=== PATIENT | male | born 1955 | race Caucasian/White ===

== ENCOUNTER 2018-03-15 11:23 | Outpatient (CLI) | payer OTHER ==
[2015-10-20 20:07] VITALS: BMI 24.7
--- NOTE | 2018-03-15 16:54 | MRI ---
EXAM: MRI right elbow without and with contrast. HISTORY: Osteomyelitis right elbow. Surgery 1 year ago x2. Removed infection first. Torn tendon i n elbow second.. TECHNIQUE: Using a local extremity coil on a high field strength magnet multiplanar multisequence ma gnet resonance imaging was attempted of the right elbow pre and post intravenous gadolinium contrast administration. 19 ml of gadolinium contrast administered for the examination.. FINDINGS: I do not have prior radiographs of the right elbow available for comparison at the time of this dictation. The alignment of the right elbow shows no dislocation or joint subluxations. Physiologic amount of f luid right elbow joint. No large osteochondral loose bodies. There is extensive artifact related to postsurgical intervention along the distal course of the triceps tendon. Correlate with operative h istory. There is tendinosis with likely component of scar/granulation tissue and disruption of the d istal triceps tendinous insertion. Loss of subcutaneous fat with soft tissue swelling. This may ref lect cellulitis/edema/phlegmon. Intermixed is a thickened peripherally enhancing fluid signal intens ity collection measuring 10 mm concerning for abscess. Cutaneous defect/wound/ulceration overlying. Correlate clinically.. Contact with the underlying posterior aspect of the olecranon. Some cortica l indistinctness as well as somewhat erosive/cystic change posterior olecranon. Although some of thi s may be postoperative concern for osteomyelitis. Within the anterior compartment there is distal ins ertional biceps brachii tendinosis. Intact distal brachialis tendon fibers. Within the medial compartment intact ulnar collateral ligament fibers. Origin of the flexor pronator wad intact. The ulnar nerve is located in expected position within the cubital tunnel and within no rmal limit in signal intensity and morphology. Within the lateral compartment question torn radial collateral ligament. Intact lateral ulnar collat eral ligament. Intact annular ligament.. Lateral epicondylitis with partial thickness tearing. IMPRESSION: Extensive artifact related to postsurgical intervention along the distal course of the t riceps tendon. Correlate with operative history. Tendinosis with component of scar/granulation tiss ue and disruption of the distal triceps tendinous insertion. Superimposed question cellulitis/edema/phlegmon. Intermixed peripherally enhancing 10 mm fluid colle ction concerning for abscess. Overlying cutaneous defect/wound/ulceration. Correlate clinically. U nderlying cortical indistinctness along the posterior olecranon as well as erosive/cystic change. Al though some of this may be postoperative, concern for osteomyelitis. Recommendation is obtainment an d correlation with plain film radiographs of the right elbow as none are available for comparison at the time of this dictation. Distal insertional biceps brachii tendinosis. Torn radial collateral ligament. Lateral epicondylitis with partial thickness tearing.
== END 2018-03-15 11:24 | disposition home or self-care (01) ==
LOC: RAD 11:23
PROVIDERS: ATTEND Orthopaedic Surgery Sports Medicine
DX: M86.9 Osteomyelitis, unspecified (principal)
CPT/HCPCS: 36415; 82565; 85025; 85651; 86140

== ENCOUNTER 2018-04-26 13:12 | Outpatient (CLI) ==
[2015-10-20 20:07] VITALS: BMI 24.7
== END 2018-04-26 13:13 | disposition home or self-care (01) ==
LOC: NONPT 13:12
PROVIDERS: ATTEND Orthopaedic Surgery Sports Medicine
DX: M70.21 Olecranon bursitis, right elbow (principal); M86.9 Osteomyelitis, unspecified
CPT/HCPCS: 82565; 85025

== ENCOUNTER 2018-04-29 10:16 | Outpatient (CLI) ==
[2015-10-20 20:07] VITALS: BMI 24.7
== END 2018-04-29 10:17 | disposition home or self-care (01) ==
LOC: LAB 10:16
PROVIDERS: ATTEND Orthopaedic Surgery Sports Medicine
DX: M86.9 Osteomyelitis, unspecified (principal)
CPT/HCPCS: 36415; 85025

== ENCOUNTER 2018-05-03 16:10 | Outpatient (CLI) | payer OTHER ==
[2015-10-20 20:07] VITALS: BMI 24.7
== END 2018-05-03 16:11 | disposition home or self-care (01) ==
LOC: NONPT 16:10
PROVIDERS: ATTEND Orthopaedic Surgery Sports Medicine
DX: M86.9 Osteomyelitis, unspecified (principal)
CPT/HCPCS: 82550; 82565; 85025

== ENCOUNTER 2018-05-10 15:37 | Outpatient (CLI) ==
[2015-10-20 20:07] VITALS: BMI 24.7
== END 2018-05-10 15:38 | disposition home or self-care (01) ==
LOC: NONPT 15:37
PROVIDERS: ATTEND Orthopaedic Surgery Sports Medicine
DX: M86.9 Osteomyelitis, unspecified (principal)
CPT/HCPCS: 82565

== ENCOUNTER 2018-05-12 09:42 | Outpatient (CLI) ==
[2015-10-20 20:07] VITALS: BMI 24.7
== END 2018-05-12 09:43 | disposition home or self-care (01) ==
LOC: NONPT 09:42
PROVIDERS: ATTEND Orthopaedic Surgery Sports Medicine
DX: M86.9 Osteomyelitis, unspecified (principal)
CPT/HCPCS: 85025

== ENCOUNTER 2018-05-24 15:22 | Outpatient (CLI) | payer OTHER ==
[2015-10-20 20:07] VITALS: BMI 24.7
== END 2018-05-24 15:23 | disposition home or self-care (01) ==
LOC: NONPT 15:22
PROVIDERS: ATTEND Orthopaedic Surgery Sports Medicine
DX: M86.9 Osteomyelitis, unspecified (principal)
CPT/HCPCS: 82565; 85025

== ENCOUNTER 2018-05-27 09:30 | Outpatient (CLI) | payer OTHER ==
[2015-10-20 20:07] VITALS: BMI 24.7
== END 2018-05-27 09:31 | disposition home or self-care (01) ==
LOC: LAB 09:30
PROVIDERS: ATTEND Orthopaedic Surgery Sports Medicine
DX: M86.9 Osteomyelitis, unspecified (principal)
CPT/HCPCS: 36415; 85651

== ENCOUNTER 2021-11-17 17:43 | Observation (INO) ==
[2021-11-17 17:53] VITALS: BMI 31.5
[2021-11-17] MEDS ORDERED: SODIUM CHLORIDE 1,000 ML IV STA ×2 (17:54)
[2021-11-17] MEDS ORDERED: VENTOLIN HFA (PER PUFF-WITH SPACER) IH ONE (17:56)
[2021-11-17] MEDS ORDERED: ATROVENT HFA INHALER (PER PUFF-WITH SPACER) IH ONE (17:56)
[2021-11-17] MEDS ORDERED: SOLU-MEDROL 125 MG IVP ONE (17:56)
[2021-11-17 18:17] LABS: ABG PH 7.39 (7.35-7.45)
[2021-11-17 18:18] LABS: ABG O2 HGB 95.3 % (95-100); BEecf -3.2 (-2.0-3.0); COHb 1.2 (0.5-1.5); HCO3 21.8 (21-28); MetHb 0.8 (0-1.5); TCO2 22.9 (19-24); sO2 97.1 % (94-98); tHb 15.2 g/dl (11.7-17.4)
--- NOTE | 2021-11-17 18:24 | CT ---
EXAM: CT BRAIN HISTORY: Altered mental status TECHNIQUE: CT brain without intravenous contrast. 5-mm axial sections with Reformations. COMPARISON: 04/15/2012 FINDINGS: There is mild age-related cerebral volume loss. There is mild to moderate periventricular and deep w zeny matter low attenuation which although nonspecific is suggestive of chronic microvascular ischemi c change. These findings are stable. The brain otherwise was unremarkable without evidence of hemorr luis enrique or large vessel distribution recent ischemic infarction. There is no suggestion of acute hydroc ephalus or subdural fluid collection. No mass or mass effect. Cranium has no acute finding. Mastoi d processes are aerated. The visualized paranasal sinuses reveal mild mucosal thickening. IMPRESSION: 1. Involutional changes. No acute intracranial process identified. - - - - - All CT scans are performed using dose optimization techniques as appropriate to the performed exam an d include at least one of the following: Automated exposure control, adjustment of the mA and/or kV according t o size, and the use of iterative reconstruction technique.
[2021-11-17 18:36] LABS: BASOPHILS % (AUTO) 0.3 % (0.0-3.0); EOSINOPHILS # (AUTO) 0.1 K/ul (0.0-0.7); HEMATOCRIT 43.6 % (42.0-52.0); HEMOGLOBIN 15.3 g/dl (14.0-18.0); IMMATURE GRANULOCYTE % (AUTO) 0.4 % (0.0-5.0); LYMPHOCYTES # (AUTO) 2.1 K/uL (0.60-3.4); LYMPHOCYTES % (AUTO) 30.4 (10.0-50.0); MEAN CORPUSCULAR HEMOGLOBIN 32.1 pg (27.0-31.0); MEAN CORPUSCULAR HGB CONC 35.1 (31.8-35.4); MEAN CORPUSCULAR VOLUME 91.6 fl (80.0-94.0); MONOCYTES # (AUTO) 0.5 K/uL (0.4-2.0); MONOCYTES % (AUTO) 7.2 (0-10); NEUTROPHILS # (AUTO) 4.2 K/ul (2.0-6.9); NEUTROPHILS % (AUTO) 60.7 % (42.2-75.2); PLATELET COUNT 238 10^3/uL (140-440); RDW COEFFICIENT OF VARIATION 12.6 % (11.6-14.8); RED BLOOD COUNT 4.76 10^6/ul (4.70-6.10); WHITE BLOOD COUNT 6.85 K/ul (4.2-10.2)
[2021-11-17] MEDS ORDERED: SODIUM CHLORIDE IV STA (18:37)
[2021-11-17] MEDS ORDERED: KEPPRA IV STA (18:37)
[2021-11-17] MEDS ORDERED: ATIVAN PO ONE (18:41)
[2021-11-17 18:48] LABS: ALANINE AMINOTRANSFERASE 56.8 U/L (0-50); ALBUMIN 4.51 g/dL (3.5-5.0); ALKALINE PHOSPHATASE 113.1 U/L (56-119); ASPARTATE AMINO TRANSFERASE 51.7 U/L (17-59); BILIRUBIN,TOTAL 0.33 mg/dL (0.2-1.3); BLOOD UREA NITROGEN 17.8 mg/dL (9-20); CALCIUM 9.48 mg/dL (8.4-10.2); CARBON DIOXIDE 25.9 mmol/L (22-30.0); CHLORIDE 105.9 mmol/L (98-107); CREATININE 1.12 mg/dL (0.60-1.10); GLUCOSE 106.3 mg/dL (74-106); POTASSIUM 3.65 mmol/L (3.5-5.1); TOTAL PROTEIN 8.27 g/dL (6.3-8.2)
--- NOTE | 2021-11-17 18:51 | CT ---
EXAM: CT THORAX HISTORY: Shortness of breath. TECHNIQUE: CT thorax without intravenous contrast. Multiplanar images presented. COMPARISON: None FINDINGS: Heart size is upper limit normal to mildly enlarged. There is no pericardial effusion. The ascendin g aortic caliber is upper limit normal at 3.5 cm. There is mild aortic atherosclerosis. A few coron ilana artery calcifications are noted. Small nonspecific mediastinal lymph nodes are present. Lungs a re free of acute infiltrate. No consolidated pneumonia, vascular congestion or pleural fluid. No pn eumothorax or suspicious pulmonary opacity. The bones reveal moderate degenerative changes of the joey mbar spine. IMPRESSION: 1. Heart size is upper limit normal to mildly enlarged. 2. The ascending aortic caliber is upper limit normal at 3.5 cm. There is mild aortic atheroscleros is. A few coronary artery calcifications are noted. 3. Lungs are free of acute infiltrate. No consolidated pneumonia, vascular congestion or pleural fl uid. - - - - - All CT scans are performed using dose optimization techniques as appropriate to the performed exam an d include at least one of the following: Automated exposure control, adjustment of the mA and/or kV according t o size, and the use of iterative reconstruction technique.
[2021-11-17 18:54] LABS: BILIRUBIN,URINE Negative (NEGATIVE); CLARITY,URINE Clear (CLEAR); COLOR,URINE Yellow (YELLOW); GLUCOSE, URINE (UA) Negative (NEGATIVE); KETONES,URINE Negative (NEGATIVE); LEUKOCYTE ESTERASE ,URINE Negative (NEGATIVE); NITRITE,URINE Negative (NEGATIVE); PH,URINE 6.5 (5-9); PROTEIN,URINE Negative (NEGATIVE); URINE, BLOOD Negative (NEGATIVE); UROBILINOGEN,URINE 0.2 (0.2)
[2021-11-17 19:00] LABS: TROPONIN I < 0.012 ng/ml (0.0000-0.120)
[2021-11-17 19:01] LABS: AMPHETAMINE SCREEN,URINE POSITIVE (NEGATIVE); BARBITURATE SCREEN,URINE NEGATIVE (NEGATIVE); OPIATE SCREEN,URINE NEGATIVE (NEGATIVE); PHENCYCLIDINE SCREEN,URINE NEGATIVE (NEGATIVE)
[2021-11-17 19:02] LABS: BENZODIAZEPINES SCREEN,URINE NEGATIVE (NEGATIVE); CANNABINOID SCREEN,URINE NEGATIVE (NEGATIVE); COCAIN SCREEN,URINE NEGATIVE (NEGATIVE); METHADONE URINE SCREEN NEGATIVE (NEGATIVE); METHAMPHETAMINES SCREEN,URINE POSITIVE (NEGATIVE); OXYCODONE URINE SCREEN POSITIVE (NEGATIVE); PROPOXYPHENE URINE SCREEN NEGATIVE (NEGATIVE); TRICYCLIC ANTIDEPRESSANTS URIN NEGATIVE (NEGATIVE)
[2021-11-17] MEDS ORDERED: CATAPRES PO ONE (19:08)
[2021-11-17 19:15] LABS: MOLECULAR FLU A NEGATIVE BY NAAT (NEGATIVE); MOLECULAR FLU B NEGATIVE BY NAAT (NEGATIVE)
--- NOTE | 2021-11-17 19:16 | ED.PDOC ---
General <WEI WHITT MD - Last Filed: 11/18/21 22:18> ED Provider: Dr. WEI WHITT MD Chief Complaint: Chest Pain Stated Complaint: absence episodes x this pm. pt had chest pain and may have fallen with no head injury Time Seen by Provider: 11/17/21 17:45 Mode of Arrival: Walk-In Information Source: Other Exam Limitations: No limitations Primary Care Provider: LORNE TSANG Nursing and Triage Documentation Reviewed and Agree: Yes Does patient meet sepsis criteria?: No If yes, has appropriate treatment been initiated?: No System Inflammatory Response Syndrome: Not Applicable Sepsis Protocol: For patient's 13 years and over: Temp is 96.8 and below OR 101 and greater Pulse >90 BPM Resp >20/minute Acutely Altered Mental Status Are patient's symptoms suggestive of a new infection, such as: -Pneumonia -Skin, Soft Tissue -Endocarditis -UTI -Bone, Joint Infection -Implantable Device -Acute Abdominal Infection -Wound Infection -Meningitis -Blood Stream Catheter Infection -Unknown Review of Systems <WEI WHITT MD - Last Filed: 11/18/21 22:18> Review Of Systems Constitutional: Reports No symptoms Eyes: Reports No symptoms Ears, Nose, Mouth, Throat: Reports No symptoms Respiratory: Reports No symptoms Cardiac: Reports No symptoms GI: Reports No symptoms : Reports No symptoms Musculoskeletal: Reports No symptoms Skin: Reports No symptoms Neurological: Reports Other (pt was not responsive, but was breathing normally and pulse ox was normal) Endocrine: Reports No symptoms Hematologic/Lymphatic: Reports No symptoms All Other Systems: Reviewed and Negative PFSH <WEI WHITT MD - Last Filed: 11/18/21 22:18> Medical History (Updated 11/18/21 @ 06:38 by OREN FERNANDEZ RN) Hypertension Seizures Physical Exam <WEI WHITT MD - Last Filed: 11/18/21 22:18> Physical Exam Appearance: Reports Well-appearing and Other (pt had episodic "absences" with normal responses interspersed) Ill-appearing: None Pain Distress: None Eyes: Reports DRU, EOMI and Conjunctiva clear ENT: Reports Ears normal, Nose normal and Oropharynx normal Neck: Supple Respiratory: Reports Airway patent, Breath sounds clear, Breath sounds equal and Respirations nonlabored Cardiovascular: Reports RRR, Pulses normal, No rub and No murmur GI/: Reports Soft, Nontender, No masses, Bowel sounds normal and No Organomegaly Musculoskeletal: Reports Normal strength, ROM intact, No edema and No calf t enderness Skin: Reports Warm, Dry and Normal color Neurological: Reports Sensation intact, Motor intact, Reflexes intact, Cranial nerves intact, Alert and Oriented Psychiatric: Reports Affect appropriate and Mood appropriate Interpretation <WEI WHITT MD - Last Filed: 11/18/21 22:18> Radiology Interpretation Xray Comments: see the reports <ROSAMARIA DENG MD - Last Filed: 11/17/21 22:47> Radiology Interpretation Radiology Interpretation By: Radiologist Radiology Results: No acute changes (1. Heart size is upper limit normal to mildly enlarged. 2. The ascending aortic caliber is upper limit normal at 3.5 cm. There is mild aortic atherosclerosis. A few coronary artery calcifications are noted. 3. Lungs are free of acute infiltrate. No consolidated pneumonia, vascular congestion o) Exam Interpreted: CT Scan Radiology Interpretation By: Radiologist Radiology Results: Negative (1. Involutional changes. No acute intracranial process identified.) Exam Interpreted: CT Scan C Programmer Time of C Programmer Interpretation: 21:18 Rate: Normal Rhythm: Sinus (@78) Ectopy: None EKG Interpretation Time of EKG #1: 17:44 Rate: Normal Rhythm: Sinus Ectopy: None [place]: NL ST Segment: Normal Interpretation: no St Elevation Time of EKG #2: 21:10 Rate: Normal Rhythm: Sinus Ectopy: None [place]: NL ST Segment: Normal EKG Interpretation: non specificc T wave abnormality Re-Evaluation <WEI WHITT MD - Last Filed: 11/18/21 22:18> Re-Evaluation Time of Re-Evaluation: 18:40 Status: Improved Vital Signs Stable: Yes Pain Level: 0 Appearance: NAD Lungs: Clear Skin: Warm and Dry Neuro: Alert and Oriented X3 CV: RRR Critical Care Note <WEI WHITT MD - Last Filed: 11/18/21 22:18> Critical Care Note Total Critical Care Time (mins): 0 <ROSAMARIA DENG MD - Last Filed: 11/17/21 22:47> Critical Care Note Total Critical Care Time (mins): 45 Comments: Agreed to get Keppra IV Given Labetalol due to persistent elevation blood pressure. Agreeable to be admitted. Course <WEI WHITT MD - Last Filed: 11/18/21 22:18> Course Hematology/Chemistry: 11/18/21 05:35 11/18/21 05:35 Orders, Labs, Meds: Lab Review 11/17/21 11/17/21 11/17/21 18:02 18:07 18:17 WBC RBC Hgb Hct MCV MCH MCHC RDW Coeff of Simran Plt Count Immature Gran % (Auto) Neut % (Auto) Lymph % (Auto) [place] % (Auto) Eos % (Auto) Baso % (Auto) Neut # (Auto) Lymph # (Auto) [place] # (Auto) Eos # (Auto) Baso # (Auto) Immature Gran # (Auto) Puncture Site L brach Base Excess -3.2 L O2 Saturation 97.1 ABG pH 7.39 ABG pCO2 36.0 ABG pO2 92.0 ABG HCO3 21.8 ABG Total CO2 22.9 Mook Test + Hemoglobin 0.8 Oxyhemoglobin 95.3 Carboxyhemoglobin 1.2 Total Hemoglobin 15.2 O2 Delivery Device Ambu bag FiO2 % 100.0 Sodium Potassium Chloride Carbon Dioxide Anion Gap BUN Creatinine Estimated GFR (MDRD) BUN/Creatinine Ratio Glucose Lactic Acid Calcium Total Bilirubin AST ALT Alkaline Phosphatase Troponin I Total Protein Albumin Globulin Albumin/Globulin Ratio Urine Color Urine Clarity Urine pH Ur Specific [place] Urine Protein Urine Glucose (UA) Urine Ketones Urine Blood Urine Nitrite Urine Bilirubin Urine Urobilinogen Ur Leukocyte Esterase Urine Opiates Screen Ur Oxycodone Screen Urine Methadone Screen Ur Propoxyphene Screen Ur Barbiturates Screen U Tricyclic Antidepress Ur Phencyclidine Scrn Ur Amphetamine Screen U Methamphetamines Scrn U Benzodiazepines Scrn Urine Cocaine Screen U Cannabinoids Screen Plasma/Serum Alcohol Influ A Molecular Assay Negative by naat Influ B Molecular Assay Negative by naat SARS CoV-2 RNA Rapid [place] Positive H 11/17/21 11/17/21 11/17/21 18:20 18:20 18:30 WBC 6.85 RBC 4.76 Hgb 15.3 Hct 43.6 MCV 91.6 MCH 32.1 H MCHC 35.1 RDW Coeff of Simran 12.6 Plt Count 238 Immature Gran % (Auto) 0.4 Neut % (Auto) 60.7 Lymph % (Auto) 30.4 [place] % (Auto) 7.2 Eos % (Auto) 1.0 Baso % (Auto) 0.3 Neut # (Auto) 4.2 Lymph # (Auto) 2.1 [place] # (Auto) 0.5 Eos # (Auto) 0.1 Baso # (Auto) 0.0 Immature Gran # (Auto) 0.0 Puncture Site Base Excess O2 Saturation ABG pH ABG pCO2 ABG pO2 ABG HCO3 ABG Total CO2 Mook Test Hemoglobin Oxyhemoglobin Carboxyhemoglobin Total Hemoglobin O2 Delivery Device FiO2 % Sodium Potassium Chloride Carbon Dioxide Anion Gap BUN Creatinine Estimated GFR (MDRD) BUN/Creatinine Ratio Glucose Lactic Acid Calcium Total Bilirubin AST ALT Alkaline Phosphatase Troponin I Total Protein Albumin Globulin Albumin/Globulin Ratio Urine Color Yellow Urine Clarity Clear Urine pH 6.5 Ur Specific [place] 1.010 Urine Protein Negative Urine Glucose (UA) Negative Urine Ketones Negative Urine Blood Negative Urine Nitrite Negative Urine Bilirubin Negative Urine Urobilinogen 0.2 Ur Leukocyte Esterase Negative Urine Opiates Screen Negative Ur Oxycodone Screen Positive H Urine Methadone Screen Negative Ur Propoxyphene Screen Negative Ur Barbiturates Screen Negative U Tricyclic Antidepress Negative Ur Phencyclidine Scrn Negative Ur Amphetamine Screen Positive H U Methamphetamines Scrn Positive H U Benzodiazepines Scrn Negative Urine Cocaine Screen Negative U Cannabinoids Screen Negative Plasma/Serum Alcohol Influ A Molecular Assay Influ B Molecular Assay SARS CoV-2 RNA Rapid [place] 11/17/21 11/17/21 11/17/21 18:30 18:30 18:30 WBC RBC Hgb Hct MCV MCH MCHC RDW Coeff of Simran Plt Count Immature Gran % (Auto) Neut % (Auto) Lymph % (Auto) [place] % (Auto) Eos % (Auto) Baso % (Auto) Neut # (Auto) Lymph # (Auto) [place] # (Auto) Eos # (Auto) Baso # (Auto) Immature Gran # (Auto) Puncture Site Base Excess O2 Saturation ABG pH ABG pCO2 ABG pO2 ABG HCO3 ABG Total CO2 Mook Test Hemoglobin Oxyhemoglobin Carboxyhemoglobin Total Hemoglobin O2 Delivery Device FiO2 % Sodium 142.0 Potassium 3.65 Chloride 105.9 Carbon Dioxide 25.9 Anion Gap 13.85 BUN 17.8 Creatinine 1.12 H Estimated GFR (MDRD) 66.00 BUN/Creatinine Ratio 15.89 Glucose 106.3 H Lactic Acid 2.06 Calcium 9.48 Total Bilirubin 0.33 AST 51.7 ALT 56.8 H Alkaline Phosphatase 113.1 Troponin I < 0.012 Total Protein 8.27 H Albumin 4.51 Globulin 3.76 Albumin/Globulin Ratio 1.19 Urine Color Urine Clarity Urine pH Ur Specific [place] Urine Protein Urine Glucose (UA) Urine Ketones Urine Blood Urine Nitrite Urine Bilirubin Urine Urobilinogen Ur Leukocyte Esterase Urine Opiates Screen Ur Oxycodone Screen Urine Methadone Screen Ur Propoxyphene Screen Ur Barbiturates Screen U Tricyclic Antidepress Ur Phencyclidine Scrn Ur Amphetamine Screen U Methamphetamines Scrn U Benzodiazepines Scrn Urine Cocaine Screen U Cannabinoids Screen Plasma/Serum Alcohol 72.6 H Influ A Molecular Assay Influ B Molecular Assay SARS CoV-2 RNA Rapid [place] 11/17/21 21:21 WBC RBC Hgb Hct MCV MCH MCHC RDW Coeff of Simran Plt Count Immature Gran % (Auto) Neut % (Auto) Lymph % (Auto) [place] % (Auto) Eos % (Auto) Baso % (Auto) Neut # (Auto) Lymph # (Auto) [place] # (Auto) Eos # (Auto) Baso # (Auto) Immature Gran # (Auto) Puncture Site Base Excess O2 Saturation ABG pH ABG pCO2 ABG pO2 ABG HCO3 ABG Total CO2 Mook Test Hemoglobin Oxyhemoglobin Carboxyhemoglobin Total Hemoglobin O2 Delivery Device FiO2 % Sodium Potassium Chloride Carbon Dioxide Anion Gap BUN Creatinine Estimated GFR (MDRD) BUN/Creatinine Ratio Glucose Lactic Acid Calcium Total Bilirubin AST ALT Alkaline Phosphatase Troponin I < 0.012 Total Protein Albumin Globulin Albumin/Globulin Ratio Urine Color Urine Clarity Urine pH Ur Specific [place] Urine Protein Urine Glucose (UA) Urine Ketones Urine Blood Urine Nitrite Urine Bilirubin Urine Urobilinogen Ur Leukocyte Esterase Urine Opiates Screen Ur Oxycodone Screen Urine Methadone Screen Ur Propoxyphene Screen Ur Barbiturates Screen U Tricyclic Antidepress Ur Phencyclidine Scrn Ur Amphetamine Screen U Methamphetamines Scrn U Benzodiazepines Scrn Urine Cocaine Screen U Cannabinoids Screen Plasma/Serum Alcohol Influ A Molecular Assay Influ B Molecular Assay SARS CoV-2 RNA Rapid [place] Orders Category Date Time Status ADMIT PATIENT INPATIENT .TO SCU (MONITORED BED) ADMISSION 11/17/21 22:34 Active ABG DRAW REQUEST Stat CARDIO 11/17/21 17:54 Completed EKG-(ED ONLY) Stat CARDIO 11/17/21 17:53 Completed EKG-(ED ONLY) Stat CARDIO 11/17/21 21:04 Completed EKG-(IP & OP ONLY) Routine CARDIO 11/18/21 07:00 Completed METERED DOSE INHALATION Routine CARDIO 11/17/21 17:57 Completed METERED DOSE INHALATION Routine CARDIO 11/17/21 22:38 Active ACTIVITY .Up With Assistance CARE 11/17/21 22:34 Active INTAKE & OUTPUT Q8HR CARE 11/17/21 22:35 Active TELEMETRY MONITORING TELE CARE 11/17/21 22:35 Active VITAL SIGNS Q4HR CARE 11/17/21 22:37 Active 2 GRAM SODIUM DIET DIETARY 11/17/21 Breakfast Ordered Saline Lock [ED IV/MEDIPORT/POWERPORT] .ONCE EMERGENCY 11/17/21 17:54 Active ABG COOX Stat LAB 11/17/21 18:17 Completed BASIC METABOLIC PANEL DAILY@0600 LAB 11/18/21 05:35 Completed BASIC METABOLIC PANEL DAILY@0600 LAB 11/19/21 06:00 Ordered CBC W/ AUTO DIFF DAILY@0600 LAB 11/18/21 05:35 Completed CBC W/ AUTO DIFF DAILY@0600 LAB 11/19/21 06:00 Ordered CBC W/ AUTO DIFF Stat LAB 11/17/21 18:30 Completed COMPREHENSIVE METABOLIC PANEL Stat LAB 11/17/21 18:30 Completed CREATINE KINASE Q8H LAB 11/18/21 00:35 Completed CREATINE KINASE Q8H LAB 11/18/21 05:35 Completed DRUG SCREEN (RAPID FOR ED) [DRUG SCREEN, URINE, RAPID] LAB 11/17/21 18:20 Completed Stat ETOH LEVEL [BLOOD ALCOHOL] Stat LAB 11/17/21 18:30 Completed FLU A & B MOLECULAR [FLU A/B MOLECULAR] Stat LAB 11/17/21 18:07 Completed LACTIC ACID Stat LAB 11/17/21 18:30 Completed SARS COV-2 RNA RAPID [place]Y Stat LAB 11/17/21 18:02 Completed TROPONIN I Q8H LAB 11/18/21 00:35 Completed TROPONIN I Q8H LAB 11/18/21 05:35 Completed TROPONIN I Stat LAB 11/17/21 18:30 Completed TROPONIN I Stat LAB 11/17/21 21:21 Completed URINALYSIS C & S IF INDICATED Stat LAB 11/17/21 18:20 Completed 0.9 % Sodium Chloride [Saline Flush] MEDS 11/17/21 17:54 Active 1 syr IVF PRN PRN Acetaminophen [Tylenol] MEDS 11/17/21 22:40 Active 650 mg PO Q4H PRN Albuterol Inhaler(with Spacer) [Ventolin Hfa (Per Puff- MEDS 11/17/21 17:56 Discontinued with Spacer)] 2 puff IH ONCE ONE Albuterol Inhaler(with Spacer) [Ventolin Hfa (Per Puff- MEDS 11/18/21 06:00 Active with Spacer)] 2 puff IH RTQID Clonidine HCl [Catapres] MEDS 11/17/21 19:08 Discontinued 0.2 mg PO ONCE ONE Enalaprilat Dihydrate [Vasotec IV] MEDS 11/17/21 22:22 Discontinued 1.25 mg IVP ONCE ONE Enoxaparin Sodium [Lovenox] MEDS 11/18/21 09:00 Active 40 mg SUBCUT DAILY Ipratropium Inhaler(Spacer) [Atrovent Hfa Inhaler (Per MEDS 11/17/21 17:56 Discontinued Puff-with Spacer)] 2 puff IH ONCE ONE Labetalol HCl [Trandate] MEDS 11/17/21 20:07 Discontinued 20 mg IVP ONCE STA Levetiracetam Inj [Keppra] 1,000 mg MEDS 11/17/21 18:37 Discontinued 0.9 % Sodium Chloride [Sodium Chloride 100Ml] 100 ml IV ONCE Levetiracetam Inj [Keppra] 500 mg MEDS 11/18/21 09:00 Discontinued 0.9 % Sodium Chloride [Sodium Chloride 100Ml] 100 ml IV Q12HR Lorazepam [Ativan] MEDS 11/17/21 18:41 Discontinued 0.5 mg PO ONCE ONE Lorazepam [Ativan] MEDS 11/17/21 22:17 Discontinued 1 mg IVP ONCE ONE Methylprednisolone Sod Succ/Pf [Solu-Medrol 125 mg] MEDS 11/17/21 17:56 Discontinued 125 mg IVP ONCE ONE Morphine Sulfate [Morphine 2 mg/ml Syringe] MEDS 11/17/21 22:40 Active 2 mg IVP Q4H PRN Ondansetron HCl/Pf [Zofran 4 mg/2 ml] MEDS 11/17/21 22:40 Active 4 mg IVP Q6H PRN Pantoprazole Sodium [Protonix IV] MEDS 11/18/21 09:00 Active 40 mg IVP DAILY Sodium Chloride 0.9% [Sodium Chloride] 1,000 ml MEDS 11/17/21 17:54 Discontinued IV 125 mls/hr Sodium Chloride 0.9% [Sodium Chloride] 1,000 ml MEDS 11/17/21 23:00 Active IV 135 mls/hr Sodium Chloride 0.9% [Sodium Chloride] 1,000 ml MEDS 11/17/21 17:54 Discontinued IV BOLUS RESUSCITATION STATUS Routine OTHERS 11/17/21 22:[address] CHEST W/O CONTRAST Stat RADS 11/17/21 17:[address] HEAD W/O CONTRAST Stat RADS 11/17/21 17:53 Completed Medications Generic Name Dose Route Start Last Admin Trade Name Freq PRN Reason Stop Dose Admin Acetaminophen 650 mg 11/17/21 22:40 Acetaminophen 325 Mg Tablet PO Q4H PRN Fever and Mild Pain Albuterol Sulfate 2 puff 11/18/21 06:00 11/18/21 18:52 Albuterol Sulfate (Ventolin Hfa) 18 Gm 1 Puff With Spacer IH 2 puff RTQID MIGUEL Administration Aspirin 81 mg 11/18/21 08:30 11/18/21 09:35 Aspirin 81 Mg Tablet. PO 81 mg DAILYWM MIGUEL Administration Budesonide/Formoterol Fumarate 2 puff 11/18/21 10:00 11/18/21 20:26 Budesonide/Formoterol Fumarate 80/4.5 Mcg Hfa.Aer.Ad IH 2 puff BID MIGUEL Administration Chlordiazepoxide HCl 25 mg 11/18/21 10:55 11/18/21 20:25 Chlordiazepoxide Hcl 25 Mg Capsule PO 25 mg QID PRN Administration withdrawls Duloxetine HCl 60 mg 11/18/21 09:00 11/18/21 09:35 Duloxetine Hcl 30 Mg Capsule. PO 60 mg DAILY MIGUEL Administration Enalapril Maleate 10 mg 11/18/21 21:00 11/18/21 20:25 Enalapril Maleate 5 Mg Tablet PO 10 mg BEDTIME MIGUEL Administration Enalaprilat 1.25 mg 11/17/21 22:49 Enalaprilat Dihydrate 1.25 Mg/Ml Vial IVP Q6H PRN BP> 190/100 Enoxaparin Sodium 40 mg 11/18/21 09:00 11/18/21 09:35 Enoxaparin Sodium 40 Mg/0.4 Ml Syr SUBCUT 40 mg DAILY MIGUEL Administration Sodium Chloride 1,000 mls @ 135 mls/hr 11/17/21 23:00 11/18/21 17:27 Sodium Chloride IV 135 mls/hr .Q7H25M MIGUEL Administration Levetiracetam 500 mg 11/18/21 21:00 11/18/21 20:25 Levetiracetam 500 Mg Tablet PO 500 mg BID MIGUEL Administration Lorazepam 2 mg 11/17/21 22:49 11/18/21 02:30 Lorazepam Inj 2 Mg/Ml Vial IVP 2 mg Q4H PRN Administration Seizures Morphine Sulfate 2 mg 11/17/21 22:40 Morphine Sulfate 2 Mg/Ml Syringe IVP Q4H PRN Severe Pain Non-Formulary Medication 3 mg 11/18/21 21:00 11/18/21 20:30 Cariprazine [Vraylar] PO Not Given BEDTIME MIGUEL Ondansetron HCl 4 mg 11/17/21 22:40 Ondansetron Hcl/Pf 4 Mg/2 Ml Sdv IVP Q6H PRN Nausea / Vomiting Oxycodone/Acetaminophen 1 tab 11/17/21 22:47 Oxycodone/Acetaminophen 5/325 Mg Tablet PO TID PRN MODERATE PAIN Pantoprazole Sodium 40 mg 11/18/21 09:00 11/18/21 09:41 Pantoprazole Sodium 40 Mg Vial IVP 40 mg DAILY MIGUEL Administration Pravastatin Sodium 40 mg 11/18/21 21:00 11/18/21 20:25 Pravastatin Sodium 40 Mg Tablet PO 40 mg BEDTIME MIGUEL Administration Sodium Chloride 1 syr 11/17/21 17:54 11/17/21 18:26 0.9% Sodium Chloride 10 Ml Disp.Syrin IVF 1 syr PRN PRN Administration To flush IV Zolpidem Tartrate 10 mg 11/17/21 23:31 11/18/21 20:25 Zolpidem Tartrate 5 Mg Tablet PO 10 mg BEDTIME MIGUEL Administration Discontinued Medications Generic Name Dose Route Start Last Admin Trade Name Freq PRN Reason Stop Dose Admin Albuterol Sulfate 2 puff 11/17/21 17:56 11/17/21 18:44 Albuterol Sulfate (Ventolin Hfa) 18 Gm 1 Puff With Spacer IH 11/17/21 17:57 2 puff ONCE ONE Administration Clonidine 0.2 mg 11/17/21 19:08 11/17/21 19:12 Clonidine Hcl 0.1 Mg Tablet PO 11/17/21 19:09 0.2 mg ONCE ONE Administration Enalapril Maleate 10 mg 11/18/21 10:55 11/18/21 11:12 Enalapril Maleate 20 Mg Tablet PO 11/18/21 10:56 10 mg ONCE ONE Administration Enalaprilat 1.25 mg 11/17/21 22:22 11/17/21 23:07 Enalaprilat Dihydrate 1.25 Mg/Ml Vial IVP 11/17/21 22:23 Not Given ONCE ONE Sodium Chloride 1,000 mls @ 1,000 mls/hr 11/17/21 17:54 11/17/21 18:26 Sodium Chloride IV 11/17/21 18:53 1,000 mls/hr BOLUS STA Administration Sodium Chloride 1,000 mls @ 125 mls/hr 11/17/21 17:54 11/17/21 18:26 Sodium Chloride IV 11/18/21 01:53 125 mls/hr .Q8H STA Administration Levetiracetam 1,000 mg/ Sodium 110 mls @ 100 mls/hr 11/17/21 18:37 11/17/21 19:43 Chloride IV 11/17/21 19:42 100 mls/hr ONCE STA Administration Levetiracetam 500 mg/ Sodium 105 mls @ 100 mls/hr 11/18/21 09:00 11/18/21 09:32 Chloride IV 100 mls/hr Q12HR MIGUEL Administration Ipratropium [place] 2 puff 11/17/21 17:56 11/17/21 18:44 Ipratropium [place] 12.9 Gm Hfa Inhaler Per Puff With Spacer IH 11/17/21 17:57 2 puff ONCE ONE Administration Labetalol HCl 20 mg 11/17/21 20:07 11/17/21 20:10 Labetalol Hcl 20 Mg/4 Ml Disp.Syrin IVP 11/17/21 20:08 20 mg ONCE STA Administration Lorazepam 0.5 mg 11/17/21 18:41 11/17/21 18:46 Lorazepam 0.5 Mg Tablet PO 11/17/21 18:42 0.5 mg ONCE ONE Administration Lorazepam 1 mg 11/17/21 22:17 11/17/21 22:24 Lorazepam Inj 2 Mg/Ml Vial IVP 11/17/21 22:18 1 mg ONCE ONE Administration Methylprednisolone Sodium Succinate 125 mg 11/17/21 17:56 11/17/21 18:23 Methylprednisolone Sod Succ/Pf 125 Mg/2 Ml Vial IVP 11/17/21 17:57 125 mg ONCE ONE Administration Zolpidem Tartrate 10 mg 11/18/21 21:00 Zolpidem Tartrate 5 Mg Tablet PO BEDTIME MIGUEL Vital Signs: Temp Pulse Resp BP Pulse Ox 11/17/21 17:44 97.7 F 88 20 153/106 H 100 <ROSAMARIA DENG MD - Last Filed: 11/17/21 22:47> Course Orders, Labs, Meds: Lab Review 11/17/21 11/17/21 11/17/21 18:02 18:07 18:17 WBC RBC Hgb Hct MCV MCH MCHC RDW Coeff of Simran Plt Count Immature Gran % (Auto) Neut % (Auto) Lymph % (Auto) [place] % (Auto) Eos % (Auto) Baso % (Auto) Neut # (Auto) Lymph # (Auto) [place] # (Auto) Eos # (Auto) Baso # (Auto) Immature Gran # (Auto) Puncture Site L brach Base Excess -3.2 L O2 Saturation 97.1 ABG pH 7.39 ABG pCO2 36.0 ABG pO2 92.0 ABG HCO3 21.8 ABG Total CO2 22.9 Mook Test + Hemoglobin 0.8 Oxyhemoglobin 95.3 Carboxyhemoglobin 1.2 Total Hemoglobin 15.2 O2 Delivery Device Ambu bag FiO2 % 100.0 Sodium Potassium Chloride Carbon Dioxide Anion Gap BUN Creatinine Estimated GFR (MDRD) BUN/Creatinine Ratio Glucose Lactic Acid Calcium Total Bilirubin AST ALT Alkaline Phosphatase Troponin I Total Protein Albumin Globulin Albumin/Globulin Ratio Urine Color Urine Clarity Urine pH Ur Specific [place] Urine Protein Urine Glucose (UA) Urine Ketones Urine Blood Urine Nitrite Urine Bilirubin Urine Urobilinogen Ur Leukocyte Esterase Urine Opiates Screen Ur Oxycodone Screen Urine Methadone Screen Ur Propoxyphene Screen Ur Barbiturates Screen U Tricyclic Antidepress Ur Phencyclidine Scrn Ur Amphetamine Screen U Methamphetamines Scrn U Benzodiazepines Scrn Urine Cocaine Screen U Cannabinoids Screen Plasma/Serum Alcohol Influ A Molecular Assay Negative by naat Influ B Molecular Assay Negative by naat SARS CoV-2 RNA Rapid [place] Positive H 11/17/21 11/17/21 11/17/21 18:20 18:20 18:30 WBC 6.85 RBC 4.76 Hgb 15.3 Hct 43.6 MCV 91.6 MCH 32.1 H MCHC 35.1 RDW Coeff of Simran 12.6 Plt Count 238 Immature Gran % (Auto) 0.4 Neut % (Auto) 60.7 Lymph % (Auto) 30.4 [place] % (Auto) 7.2 Eos % (Auto) 1.0 Baso % (Auto) 0.3 Neut # (Auto) 4.2 Lymph # (Auto) 2.1 [place] # (Auto) 0.5 Eos # (Auto) 0.1 Baso # (Auto) 0.0 Immature Gran # (Auto) 0.0 Puncture Site Base Excess O2 Saturation ABG pH ABG pCO2 ABG pO2 ABG HCO3 ABG Total CO2 Mook Test Hemoglobin Oxyhemoglobin Carboxyhemoglobin Total Hemoglobin O2 Delivery Device FiO2 % Sodium Potassium Chloride Carbon Dioxide Anion Gap BUN Creatinine Estimated GFR (MDRD) BUN/Creatinine Ratio Glucose Lactic Acid Calcium Total Bilirubin AST ALT Alkaline Phosphatase Troponin I Total Protein Albumin Globulin Albumin/Globulin Ratio Urine Color Yellow Urine Clarity Clear Urine pH 6.5 Ur Specific [place] 1.010 Urine Protein Negative Urine Glucose (UA) Negative Urine Ketones Negative Urine Blood Negative Urine Nitrite Negative Urine Bilirubin Negative Urine Urobilinogen 0.2 Ur Leukocyte Esterase Negative Urine Opiates Screen Negative Ur Oxycodone Screen Positive H Urine Methadone Screen Negative Ur Propoxyphene Screen Negative Ur Barbiturates Screen Negative U Tricyclic Antidepress Negative Ur Phencyclidine Scrn Negative Ur Amphetamine Screen Positive H U Methamphetamines Scrn Positive H U Benzodiazepines Scrn Negative Urine Cocaine Screen Negative U Cannabinoids Screen Negative Plasma/Serum Alcohol Influ A Molecular Assay Influ B Molecular Assay SARS CoV-2 RNA Rapid L[place]Y 11/17/21 11/17/21 11/17/21 18:30 18:30 18:30 WBC RBC Hgb Hct MCV MCH MCHC RDW Coeff of Simran Plt Count Immature Gran % (Auto) Neut % (Auto) Lymph % (Auto) [place] % (Auto) Eos % (Auto) Baso % (Auto) Neut # (Auto) Lymph # (Auto) [place] # (Auto) Eos # (Auto) Baso # (Auto) Immature Gran # (Auto) Puncture Site Base Excess O2 Saturation ABG pH ABG pCO2 ABG pO2 ABG HCO3 ABG Total CO2 Mook Test Hemoglobin Oxyhemoglobin Carboxyhemoglobin Total Hemoglobin O2 Delivery Device FiO2 % Sodium 142.0 Potassium 3.65 Chloride 105.9 Carbon Dioxide 25.9 Anion Gap 13.85 BUN 17.8 Creatinine 1.12 H Estimated GFR (MDRD) 66.00 BUN/Creatinine Ratio 15.89 Glucose 106.3 H Lactic Acid 2.06 Calcium 9.48 Total Bilirubin 0.33 AST 51.7 ALT 56.8 H Alkaline Phosphatase 113.1 Troponin I < 0.012 Total Protein 8.27 H Albumin 4.51 Globulin 3.76 Albumin/Globulin Ratio 1.19 Urine Color Urine Clarity Urine pH Ur Specific [place] Urine Protein Urine Glucose (UA) Urine Ketones Urine Blood Urine Nitrite Urine Bilirubin Urine Urobilinogen Ur Leukocyte Esterase Urine Opiates Screen Ur Oxycodone Screen Urine Methadone Screen Ur Propoxyphene Screen Ur Barbiturates Screen U Tricyclic Antidepress Ur Phencyclidine Scrn Ur Amphetamine Screen U Methamphetamines Scrn U Benzodiazepines Scrn Urine Cocaine Screen U Cannabinoids Screen Plasma/Serum Alcohol 72.6 H Influ A Molecular Assay Influ B Molecular Assay SARS CoV-2 RNA Rapid L[place]Y 11/17/21 21:21 WBC RBC Hgb Hct MCV MCH MCHC RDW Coeff of Simran Plt Count Immature Gran % (Auto) Neut % (Auto) Lymph % (Auto) [place] % (Auto) Eos % (Auto) Baso % (Auto) Neut # (Auto) Lymph # (Auto) [place] # (Auto) Eos # (Auto) Baso # (Auto) Immature Gran # (Auto) Puncture Site Base Excess O2 Saturation ABG pH ABG pCO2 ABG pO2 ABG HCO3 ABG Total CO2 Mook Test Hemoglobin Oxyhemoglobin Carboxyhemoglobin Total Hemoglobin O2 Delivery Device FiO2 % Sodium Potassium Chloride Carbon Dioxide Anion Gap BUN Creatinine Estimated GFR (MDRD) BUN/Creatinine Ratio Glucose Lactic Acid Calcium Total Bilirubin AST ALT Alkaline Phosphatase Troponin I < 0.012 Total Protein Albumin Globulin Albumin/Globulin Ratio Urine Color Urine Clarity Urine pH Ur Specific [place] Urine Protein Urine Glucose (UA) Urine Ketones Urine Blood Urine Nitrite Urine Bilirubin Urine Urobilinogen Ur Leukocyte Esterase Urine Opiates Screen Ur Oxycodone Screen Urine Methadone Screen Ur Propoxyphene Screen Ur Barbiturates Screen U Tricyclic Antidepress Ur Phencyclidine Scrn Ur Amphetamine Screen U Methamphetamines Scrn U Benzodiazepines Scrn Urine Cocaine Screen U Cannabinoids Screen Plasma/Serum Alcohol Influ A Molecular Assay Influ B Molecular Assay SARS CoV-2 RNA Rapid LINSDAY Orders Category Date Time Status ADMIT PATIENT INPATIENT .TO SCU (MONITORED BED) ADMISSION 11/17/21 22:34 Active ABG DRAW REQUEST Stat CARDIO 11/17/21 17:54 Completed EKG-(ED ONLY) Stat CARDIO 11/17/21 17:53 Completed EKG-(ED ONLY) Stat CARDIO 11/17/21 21:04 Completed EKG-(IP & OP ONLY) Routine CARDIO 11/18/21 07:00 Completed METERED DOSE INHALATION Routine CARDIO 11/17/21 17:57 Completed METERED DOSE INHALATION Routine CARDIO 11/17/21 22:38 Active ACTIVITY .Up With Assistance CARE 11/17/21 22:34 Active INTAKE & OUTPUT Q8HR CARE 11/17/21 22:35 Active TELEMETRY MONITORING TELE CARE 11/17/21 22:35 Active VITAL SIGNS Q4HR CARE 11/17/21 22:37 Active 2 GRAM SODIUM DIET DIETARY 11/17/21 Breakfast Ordered Saline Lock [ED IV/MEDIPORT/POWERPORT] .ONCE EMERGENCY 11/17/21 17:54 Active ABG COOX Stat LAB 11/17/21 18:17 Completed BASIC METABOLIC PANEL DAILY@0600 LAB 11/18/21 05:35 Completed BASIC METABOLIC PANEL DAILY@0600 LAB 11/19/21 06:00 Ordered CBC W/ AUTO DIFF DAILY@0600 LAB 11/18/21 05:35 Completed CBC W/ AUTO DIFF DAILY@0600 LAB 11/19/21 06:00 Ordered CBC W/ AUTO DIFF Stat LAB 11/17/21 18:30 Completed COMPREHENSIVE METABOLIC PANEL Stat LAB 11/17/21 18:30 Completed CREATINE KINASE Q8H LAB 11/18/21 00:35 Completed CREATINE KINASE Q8H LAB 11/18/21 05:35 Completed DRUG SCREEN (RAPID FOR ED) [DRUG SCREEN, URINE, RAPID] LAB 11/17/21 18:20 Completed Stat ETOH LEVEL [BLOOD ALCOHOL] Stat LAB 11/17/21 18:30 Completed FLU A & B MOLECULAR [FLU A/B MOLECULAR] Stat LAB 11/17/21 18:07 Completed LACTIC ACID Stat LAB 11/17/21 18:30 Completed SARS COV-2 RNA RAPID LINDSAY Stat LAB 11/17/21 18:02 Completed TROPONIN I Q8H LAB 11/18/21 00:35 Completed TROPONIN I Q8H LAB 11/18/21 05:35 Completed TROPONIN I Stat LAB 11/17/21 18:30 Completed TROPONIN I Stat LAB 11/17/21 21:21 Completed URINALYSIS C & S IF INDICATED Stat LAB 11/17/21 18:20 Completed 0.9 % Sodium Chloride [Saline Flush] MEDS 11/17/21 17:54 Active 1 syr IVF PRN PRN Acetaminophen [Tylenol] MEDS 11/17/21 22:40 Active 650 mg PO Q4H PRN Albuterol Inhaler(with Spacer) [Ventolin Hfa (Per Puff- MEDS 11/17/21 17:56 Discontinued with Spacer)] 2 puff IH ONCE ONE Albuterol Inhaler(with Spacer) [Ventolin Hfa (Per Puff- MEDS 11/18/21 06:00 Active with Spacer)] 2 puff IH RTQID Clonidine HCl [Catapres] MEDS 11/17/21 19:08 Discontinued 0.2 mg PO ONCE ONE Enalaprilat Dihydrate [Vasotec IV] MEDS 11/17/21 22:22 Discontinued 1.25 mg IVP ONCE ONE Enoxaparin Sodium [Lovenox] MEDS 11/18/21 09:00 Active 40 mg SUBCUT DAILY Ipratropium Inhaler(Spacer) [Atrovent Hfa Inhaler (Per MEDS 11/17/21 17:56 Dis continued Puff-with Spacer)] 2 puff IH ONCE ONE Labetalol HCl [Trandate] MEDS 11/17/21 20:07 Discontinued 20 mg IVP ONCE STA Levetiracetam Inj [Keppra] 1,000 mg MEDS 11/17/21 18:37 Discontinued 0.9 % Sodium Chloride [Sodium Chloride 100Ml] 100 ml IV ONCE Levetiracetam Inj [Keppra] 500 mg MEDS 11/18/21 09:00 Discontinued 0.9 % Sodium Chloride [Sodium Chloride 100Ml] 100 ml IV Q12HR Lorazepam [Ativan] MEDS 11/17/21 18:41 Discontinued 0.5 mg PO ONCE ONE Lorazepam [Ativan] MEDS 11/17/21 22:17 Discontinued 1 mg IVP ONCE ONE Methylprednisolone Sod Succ/Pf [Solu-Medrol 125 mg] MEDS 11/17/21 17:56 Discontinued 125 mg IVP ONCE ONE Morphine Sulfate [Morphine 2 mg/ml Syringe] MEDS 11/17/21 22:40 Active 2 mg IVP Q4H PRN Ondansetron HCl/Pf [Zofran 4 mg/2 ml] MEDS 11/17/21 22:40 Active 4 mg IVP Q6H PRN Pantoprazole Sodium [Protonix IV] MEDS 11/18/21 09:00 Active 40 mg IVP DAILY Sodium Chloride 0.9% [Sodium Chloride] 1,000 ml MEDS 11/17/21 17:54 Discontinued IV 125 mls/hr Sodium Chloride 0.9% [Sodium Chloride] 1,000 ml MEDS 11/17/21 23:00 Active IV 135 mls/hr Sodium Chloride 0.9% [Sodium Chloride] 1,000 ml MEDS 11/17/21 17:54 Discontinued IV BOLUS RESUSCITATION STATUS Routine OTHERS 11/17/21 22:[address] CHEST W/O CONTRAST Stat RADS 11/17/21 17:[address] HEAD W/O CONTRAST Stat RADS 11/17/21 17:53 Completed Medications Generic Name Dose Route Start Last Admin Trade Name Freq PRN Reason Stop Dose Admin Acetaminophen 650 mg 11/17/21 22:40 Acetaminophen 325 Mg Tablet PO Q4H PRN Fever and Mild Pain Albuterol Sulfate 2 puff 11/18/21 06:00 11/18/21 18:52 Albuterol Sulfate (Ventolin Hfa) 18 Gm 1 Puff With Spacer IH 2 puff RTQID MIGUEL Administration Aspirin 81 mg 11/18/21 08:30 11/18/21 09:35 Aspirin 81 Mg Tablet.Dr PO 81 mg DAILYWM MIGUEL Administration Budesonide/Formoterol Fumarate 2 puff 11/18/21 10:00 11/18/21 20:26 Budesonide/Formoterol Fumarate 80/4.5 Mcg Hfa.Aer.Ad IH 2 puff BID MIGUEL Administration Chlordiazepoxide HCl 25 mg 11/18/21 10:55 11/18/21 20:25 Chlordiazepoxide Hcl 25 Mg Capsule PO 25 mg QID PRN Administration withdrawls Duloxetine HCl 60 mg 11/18/21 09:00 11/18/21 09:35 Duloxetine Hcl 30 Mg Capsule.Dr PO 60 mg DAILY MIGUEL Administration Enalapril Maleate 10 mg 11/18/21 21:00 11/18/21 20:25 Enalapril Maleate 5 Mg Tablet PO 10 mg BEDTIME MIGUEL Administration Enalaprilat 1.25 mg 11/17/21 22:49 Enalaprilat Dihydrate 1.25 Mg/Ml Vial IVP Q6H PRN BP> 190/100 Enoxaparin Sodium 40 mg 11/18/21 09:00 11/18/21 09:35 Enoxaparin Sodium 40 Mg/0.4 Ml Syr SUBCUT 40 mg DAILY MIGUEL Administration Sodium Chloride 1,000 mls @ 135 mls/hr 11/17/21 23:00 11/18/21 17:27 Sodium Chloride IV 135 mls/hr .Q7H25M MIGUEL Administration Levetiracetam 500 mg 11/18/21 21:00 11/18/21 20:25 Levetiracetam 500 Mg Tablet PO 500 mg BID MIGUEL Administration Lorazepam 2 mg 11/17/21 22:49 11/18/21 02:30 Lorazepam Inj 2 Mg/Ml Vial IVP 2 mg Q4H PRN Administration Seizures Morphine Sulfate 2 mg 11/17/21 22:40 Morphine Sulfate 2 Mg/Ml Syringe IVP Q4H PRN Severe Pain Non-Formulary Medication 3 mg 11/18/21 21:00 11/18/21 20:30 Cariprazine [Vraylar] PO Not Given BEDTIME MIGUEL Ondansetron HCl 4 mg 11/17/21 22:40 Ondansetron Hcl/Pf 4 Mg/2 Ml Sdv IVP Q6H PRN Nausea / Vomiting Oxycodone/Acetaminophen 1 tab 11/17/21 22:47 Oxycodone/Acetaminophen 5/325 Mg Tablet PO TID PRN MODERATE PAIN Pantoprazole Sodium 40 mg 11/18/21 09:00 11/18/21 09:41 Pantoprazole Sodium 40 Mg Vial IVP 40 mg DAILY MIGUEL Administration Pravastatin Sodium 40 mg 11/18/21 21:00 11/18/21 20:25 Pravastatin Sodium 40 Mg Tablet PO 40 mg BEDTIME MIGUEL Administration Sodium Chloride 1 syr 11/17/21 17:54 11/17/21 18:26 0.9% Sodium Chloride 10 Ml Disp.Syrin IVF 1 syr PRN PRN Administration To flush IV Zolpidem Tartrate 10 mg 11/17/21 23:31 11/18/21 20:25 Zolpidem Tartrate 5 Mg Tablet PO 10 mg BEDTIME MIGUEL Administration Discontinued Medications Generic Name Dose Route Start Last Admin Trade Name Freq PRN Reason Stop Dose Admin Albuterol Sulfate 2 puff 11/17/21 17:56 11/17/21 18:44 Albuterol Sulfate (Ventolin Hfa) 18 Gm 1 Puff With Spacer IH 11/17/21 17:57 2 puff ONCE ONE Administration Clonidine 0.2 mg 11/17/21 19:08 11/17/21 19:12 Clonidine Hcl 0.1 Mg Tablet PO 11/17/21 19:09 0.2 mg ONCE ONE Administration Enalapril Maleate 10 mg 11/18/21 10:55 11/18/21 11:12 Enalapril Maleate 20 Mg Tablet PO 11/18/21 10:56 10 mg ONCE ONE Administration Enalaprilat 1.25 mg 11/17/21 22:22 11/17/21 23:07 Enalaprilat Dihydrate 1.25 Mg/Ml Vial IVP 11/17/21 22:23 Not Given ONCE ONE Sodium Chloride 1,000 mls @ 1,000 mls/hr 11/17/21 17:54 11/17/21 18:26 Sodium Chloride IV 11/17/21 18:53 1,000 mls/hr BOLUS STA Administration Sodium Chloride 1,000 mls @ 125 mls/hr 11/17/21 17:54 11/17/21 18:26 Sodium Chloride IV 11/18/21 01:53 125 mls/hr .Q8H STA Administration Levetiracetam 1,000 mg/ Sodium 110 mls @ 100 mls/hr 11/17/21 18:37 11/17/21 19:43 Chloride IV 11/17/21 19:42 100 mls/hr ONCE STA Administration Levetiracetam 500 mg/ Sodium 105 mls @ 100 mls/hr 11/18/21 09:00 11/18/21 09:32 Chloride IV 100 mls/hr Q12HR MIGUEL Administration Ipratropium [place] 2 puff 11/17/21 17:56 11/17/21 18:44 Ipratropium [place] 12.9 Gm Hfa Inhaler Per Puff With Spacer IH 11/17/21 17:57 2 puff ONCE ONE Administration Labetalol HCl 20 mg 11/17/21 20:07 11/17/21 20:10 Labetalol Hcl 20 Mg/4 Ml Disp.Syrin IVP 11/17/21 20:08 20 mg ONCE STA Administration Lorazepam 0.5 mg 11/17/21 18:41 11/17/21 18:46 Lorazepam 0.5 Mg Tablet PO 11/17/21 18:42 0.5 mg ONCE ONE Administration Lorazepam 1 mg 11/17/21 22:17 11/17/21 22:24 Lorazepam Inj 2 Mg/Ml Vial IVP 11/17/21 22:18 1 mg ONCE ONE Administration Methylprednisolone Sodium Succinate 125 mg 11/17/21 17:56 11/17/21 18:23 Methylprednisolone Sod Succ/Pf 125 Mg/2 Ml Vial IVP 11/17/21 17:57 125 mg ONCE ONE Administration Zolpidem Tartrate 10 mg 11/18/21 21:00 Zolpidem Tartrate 5 Mg Tablet PO BEDTIME MIGUEL Vital Signs: Temp Pulse Resp BP Pulse Ox 11/17/21 17:44 97.7 F 88 20 153/106 H 100 Discharge Plan Discharge Patient Disposition: ADMITTED INPATIENT Discharge Problem: Seizures, Chest pain, Alcohol intoxication, Hypertension, uncontrolled Did you review [place] [employer]ICE DIRECTOR?: Not Applicable ED Provider: WEI WHITT Condition: Fair <WEI WHITT MD - Last Filed: 11/18/21 22:18> Physician Progress Note: []1900: pt was endorsed to Dr Deng. Pt was stable in the ED.
[2021-11-17] MEDS ORDERED: TRANDATE IVP STA (20:07)
[2021-11-17] MEDS ORDERED: ATIVAN IVP ONE (22:17)
[2021-11-17] MEDS ORDERED: VASOTEC IV IVP ONE (22:22)
[2021-11-17] MEDS ORDERED: MORPHINE 2 MG/ML SYRINGE IVP PRN (22:40)
[2021-11-17] MEDS ORDERED: ZOFRAN 4 MG/2 ML IVP PRN (22:40)
[2021-11-17] MEDS ORDERED: TYLENOL PO PRN (22:40)
[2021-11-17] MEDS ORDERED: PERCOCET 5-325 PO PRN (22:47)
[2021-11-17] MEDS ORDERED: ATIVAN IVP PRN (22:49)
[2021-11-17] MEDS ORDERED: VASOTEC IV IVP PRN (22:49)
[2021-11-18] MEDS: AMBIEN PO SCH ×2 (00:13→20:25)
[2021-11-18 01:03] LABS: CREATINE KINASE 39.9 U/L (55-170)
[2021-11-18 01:16] LABS: TROPONIN I < 0.012 ng/ml (0.0000-0.120)
[2021-11-18] MEDS: SODIUM CHLORIDE 1,000 ML IV SCH ×4 (02:45→17:27)
[2021-11-18] MEDS: VENTOLIN HFA (PER PUFF-WITH SPACER) IH SCH ×4 (05:49→18:52)
[2021-11-18 05:52] LABS: BASOPHILS % (AUTO) 0.1 % (0.0-3.0); HEMATOCRIT 40.8 % (42.0-52.0); HEMOGLOBIN 13.7 g/dl (14.0-18.0); IMMATURE GRANULOCYTE % (AUTO) 0.3 % (0.0-5.0); LYMPHOCYTES # (AUTO) 0.9 K/uL (0.60-3.4); LYMPHOCYTES % (AUTO) 7.8 (10.0-50.0); MEAN CORPUSCULAR HEMOGLOBIN 31.8 pg (27.0-31.0); MEAN CORPUSCULAR HGB CONC 33.6 (31.8-35.4); MEAN CORPUSCULAR VOLUME 94.7 fl (80.0-94.0); MONOCYTES # (AUTO) 0.1 K/uL (0.4-2.0); MONOCYTES % (AUTO) 0.9 (0-10); NEUTROPHILS # (AUTO) 10.8 K/ul (2.0-6.9); NEUTROPHILS % (AUTO) 90.9 % (42.2-75.2); PLATELET COUNT 237 10^3/uL (140-440); RDW COEFFICIENT OF VARIATION 12.7 % (11.6-14.8); RED BLOOD COUNT 4.31 10^6/ul (4.70-6.10); WHITE BLOOD COUNT 11.92 K/ul (4.2-10.2)
[2021-11-18 06:04] LABS: CREATINE KINASE 45.5 U/L (55-170)
[2021-11-18 06:06] LABS: BLOOD UREA NITROGEN 16.9 mg/dL (9-20); CALCIUM 8.81 mg/dL (8.4-10.2); CARBON DIOXIDE 22.9 mmol/L (22-30.0); CHLORIDE 106.3 mmol/L (98-107); CREATININE 0.99 mg/dL (0.60-1.10); GLUCOSE 147.2 mg/dL (74-106); POTASSIUM 4.29 mmol/L (3.5-5.1); SODIUM 140.1 mmol/L (134.5-145)
[2021-11-18 06:18] LABS: TROPONIN I < 0.012 ng/ml (0.0000-0.120)
[2021-11-18] MEDS ORDERED: SODIUM CHLORIDE IV SCH (09:00)
[2021-11-18] MEDS ORDERED: NON-FORMULARY MEDICATION (Fluticasone Furoate-Vilanterol [Breo Ellipta] 1 EACH blister wit IH SCH (09:00)
[2021-11-18] MEDS ORDERED: KEPPRA IV SCH (09:00)
[2021-11-18] MEDS: ASPIRIN EC PO SCH (09:35)
[2021-11-18] MEDS: LOVENOX SUBCUT SCH (09:35)
[2021-11-18] MEDS: CYMBALTA PO SCH (09:35)
[2021-11-18] MEDS: PROTONIX IV IVP SCH (09:41)
[2021-11-18] MEDS: SYMBICORT 80-4.5 MCG INHALER IH SCH ×2 (10:16→20:26)
[2021-11-18] MEDS ORDERED: VASOTEC PO ONE (10:55)
[2021-11-18] MEDS: LIBRIUM PO PRN ×2 (11:12→20:25)
[2021-11-18] MEDS: KEPPRA PO SCH (20:25)
[2021-11-18] MEDS: VASOTEC PO SCH (20:25)
[2021-11-18] MEDS: PRAVACHOL PO SCH (20:25)
[2021-11-18] MEDS: NON-FORMULARY MEDICATION (Cariprazine [Vraylar] 3 mg capsule) PO SCH (20:30)
[2021-11-18] MEDS ORDERED: AMBIEN PO SCH (21:00)
--- NOTE | 2021-11-18 23:41 | PCM.DC ---
Final Diagnosis: Medications at Discharge: Ambulatory Orders Medication Instructions Recorded albuterol sulfate 90 mcg/actuation 2 puff inhalation QID PRN Wheezing 10/20/15 aerosol inhaler (ProAir HFA) aspirin 81 mg tablet,delayed 81 mg PO DAILYWM 10/20/15 release enalapril maleate 10 mg tablet 5 - 10 mg PO BEDTIME 10/20/15 (Vasotec) fluticasone furoate 100 1 puff inhalation QAM 10/20/15 mcg-vilanterol 25 mcg/dose inhalation powder (Breo Ellipta) levetiracetam 750 mg tablet 375 mg PO BID 10/20/15 (Keppra) omeprazole 20 mg capsule,delayed 20 mg PO BIDAC 10/20/15 release oxycodone-acetaminophen 5 mg-325 1 tab PO TID PRN Severe Pain 10/20/15 mg tablet pravastatin 40 mg tablet 40 mg PO BEDTIME 10/20/15 zolpidem 10 mg tablet (Ambien) 10 mg PO BEDTIME 10/20/15 cariprazine 3 mg capsule (Vraylar) 3 mg PO BEDTIME 11/17/21 duloxetine 60 mg capsule,delayed 60 mg PO DAILY 11/17/21 release
--- NOTE | 2021-11-18 23:41 | PCM.PROG ---
Date Seen by Provider: 11/18/21 Time Seen by Provider: 11:10 Subjective: Still a little dizzy. no acute SOB or chest pain Objective: Vitals: T=97.9 F, P=81, R=19, VR=476/90, SPO2=98 HEENT: []wnl Neck: []supple. Lungs: []chest was clear CVS: []RRR Abdomen: []benign Extremities: []no acute abnormality. Neurological: []non-focal Skin: []wnl Lab/Tests/Diagnostic Imaging: [] (1) Alcohol intoxication: Status: Acute Code(s): F10.929 - Alcohol use, unspecified with intoxication, unspecified SNOMED Code(s): 86756669 (2) Hypertension, uncontrolled: Status: Acute Code(s): I10 - Essential (primary) hypertension SNOMED Code(s): 01332873 (3) Seizures: Status: Acute Code(s): R56.9 - Unspecified convulsions SNOMED Code(s): 85430156 (4) COVID-19: Status: Acute Code(s): U07.1 - COVID-19 SNOMED Code(s): 013353825 Plan: 1. Continue Keppra 2. Monitor for DTs---will start Librium. 3. Mild COvid-19 symptoms.
[2021-11-19] MEDS: SODIUM CHLORIDE 1,000 ML IV SCH ×3 (00:12→12:31)
[2021-11-19] MEDS: VENTOLIN HFA (PER PUFF-WITH SPACER) IH SCH ×4 (05:21→19:17)
[2021-11-19 05:24] LABS: BASOPHILS % (AUTO) 0.2 % (0.0-3.0); EOSINOPHILS % (AUTO) 0.5 % (0.0-7.0); HEMATOCRIT 38.1 % (42.0-52.0); HEMOGLOBIN 12.9 g/dl (14.0-18.0); IMMATURE GRANULOCYTE % (AUTO) 0.3 % (0.0-5.0); LYMPHOCYTES # (AUTO) 2.4 K/uL (0.60-3.4); LYMPHOCYTES % (AUTO) 27.6 (10.0-50.0); MEAN CORPUSCULAR HEMOGLOBIN 31.2 pg (27.0-31.0); MEAN CORPUSCULAR HGB CONC 33.9 (31.8-35.4); MONOCYTES # (AUTO) 0.5 K/uL (0.4-2.0); MONOCYTES % (AUTO) 5.8 (0-10); NEUTROPHILS # (AUTO) 5.6 K/ul (2.0-6.9); NEUTROPHILS % (AUTO) 65.6 % (42.2-75.2); PLATELET COUNT 218 10^3/uL (140-440); RDW COEFFICIENT OF VARIATION 12.8 % (11.6-14.8); RED BLOOD COUNT 4.14 10^6/ul (4.70-6.10); WHITE BLOOD COUNT 8.59 K/ul (4.2-10.2)
[2021-11-19 05:38] LABS: BLOOD UREA NITROGEN 23.2 mg/dL (9-20); CALCIUM 8.61 mg/dL (8.4-10.2); CARBON DIOXIDE 21.6 mmol/L (22-30.0); CHLORIDE 109.6 mmol/L (98-107); CREATININE 1.12 mg/dL (0.60-1.10); GLUCOSE 108.4 mg/dL (74-106); POTASSIUM 3.78 mmol/L (3.5-5.1); SODIUM 138.9 mmol/L (134.5-145)
[2021-11-19] MEDS: PROTONIX IV IVP SCH (08:42)
[2021-11-19] MEDS: ASPIRIN EC PO SCH (08:42)
[2021-11-19] MEDS: KEPPRA PO SCH ×2 (08:42→20:19)
[2021-11-19] MEDS: CYMBALTA PO SCH (08:43)
[2021-11-19] MEDS: LOVENOX SUBCUT SCH (08:43)
[2021-11-19] MEDS: SYMBICORT 80-4.5 MCG INHALER IH SCH ×2 (09:01→20:23)
[2021-11-19] MEDS ORDERED: LIBRIUM PO PRN (13:02)
[2021-11-19] MEDS ORDERED: ATIVAN PO PRN (17:26)
[2021-11-19] MEDS: NON-FORMULARY MEDICATION (Cariprazine [Vraylar] 3 mg capsule) PO SCH (20:13)
[2021-11-19] MEDS: AMBIEN PO SCH (20:19)
[2021-11-19] MEDS: VASOTEC PO SCH (20:19)
[2021-11-19] MEDS: PRAVACHOL PO SCH (20:19)
[2021-11-20] MEDS: VENTOLIN HFA (PER PUFF-WITH SPACER) IH SCH ×2 (05:09→09:35)
[2021-11-20 05:23] LABS: BASOPHILS % (AUTO) 0.3 % (0.0-3.0); EOSINOPHILS # (AUTO) 0.1 K/ul (0.0-0.7); HEMATOCRIT 41.1 % (42.0-52.0); HEMOGLOBIN 14.2 g/dl (14.0-18.0); IMMATURE GRANULOCYTE % (AUTO) 0.4 % (0.0-5.0); LYMPHOCYTES # (AUTO) 2.1 K/uL (0.60-3.4); LYMPHOCYTES % (AUTO) 31.5 (10.0-50.0); MEAN CORPUSCULAR HGB CONC 34.5 (31.8-35.4); MEAN CORPUSCULAR VOLUME 92.6 fl (80.0-94.0); MONOCYTES # (AUTO) 0.5 K/uL (0.4-2.0); NEUTROPHILS % (AUTO) 59.8 % (42.2-75.2); PLATELET COUNT 220 10^3/uL (140-440); RDW COEFFICIENT OF VARIATION 12.9 % (11.6-14.8); RED BLOOD COUNT 4.44 10^6/ul (4.70-6.10)
[2021-11-20 05:30] VITALS: TEMP 97.4
[2021-11-20 05:39] LABS: ALANINE AMINOTRANSFERASE 52.5 U/L (0-50); ALBUMIN 4.07 g/dL (3.5-5.0); ALKALINE PHOSPHATASE 93.6 U/L (56-119); ASPARTATE AMINO TRANSFERASE 54.6 U/L (17-59); BILIRUBIN,TOTAL 0.51 mg/dL (0.2-1.3); BLOOD UREA NITROGEN 23.2 mg/dL (9-20); CALCIUM 9.03 mg/dL (8.4-10.2); CARBON DIOXIDE 24.2 mmol/L (22-30.0); CHLORIDE 106.5 mmol/L (98-107); CREATININE 1.19 mg/dL (0.60-1.10); GLUCOSE 108.1 mg/dL (74-106); POTASSIUM 3.92 mmol/L (3.5-5.1); SODIUM 138.8 mmol/L (134.5-145); TOTAL PROTEIN 7.38 g/dL (6.3-8.2)
[2021-11-20] MEDS: CYMBALTA PO SCH (08:31)
[2021-11-20] MEDS: ASPIRIN EC PO SCH (08:31)
[2021-11-20] MEDS: LOVENOX SUBCUT SCH (08:32)
[2021-11-20] MEDS: PROTONIX IV IVP SCH (08:32)
[2021-11-20] MEDS: KEPPRA PO SCH (08:32)
[2021-11-20] MEDS: SYMBICORT 80-4.5 MCG INHALER IH SCH (08:33)
--- NOTE | 2021-11-20 10:18 | PCM.PROG ---
Date Seen by Provider: 11/20/21 Time Seen by Provider: 08:30 Subjective: BP well controlled. Patient has no complaints and is asking to go home. No further seizure activity. Objective: Vitals: T=97.4 F, P=67, R=16, XO=383/82, SPO2=99 Patient alert and in NAD. HEENT: [] Neck: [] Lungs: [] Clear. BS equal. CVS: []Regular rate and rhythm. No peripheral edema. Abdomen: [] Extremities: [] Neurological: []No motor or sensory deficits. Skin: [] Lab/Tests/Diagnostic Imaging: [] (1) Alcohol intoxication: Status: Acute Code(s): F10.929 - Alcohol use, unspecified with intoxication, unspecified SNOMED Code(s): 26890004 (2) Hypertension, uncontrolled: Status: Acute Code(s): I10 - Essential (primary) hypertension SNOMED Code(s): 50604453 (3) Seizures: Status: Acute Code(s): R56.9 - Unspecified convulsions SNOMED Code(s): 95212706 (4) COVID-19: Status: Acute Code(s): U07.1 - COVID-19 SNOMED Code(s): 336852219 (5) Methamphetamine use: Status: Acute Code(s): F15.10 - Other stimulant abuse, uncomplicated SNOMED Code(s): 082373500 Plan: Patient to be discharged on present BP meds and keppra 500mg BID. Long discussion held with patient regarding methamphetamine use and how it contributes to his poorly controlled hypertension and also to his seizure disorder. He was told that he needs to abstain from methamphetamine use. His alcohol use was also discussed. It was recommended that he either abstain from alcohol or decrease its use. Patient is to follow up with his primary care provider next week.
--- NOTE | 2021-11-20 10:26 | PCM.DC ---
Final Diagnosis: Poorly controlled hypertension Seizure disorder Alcohol use Methamphetamine use Covid 19 infection Physical Exam Appearance: Well-appearing, No pain distress and Well-nourished Ill-appearing: None Pain Distress: None Eyes: DRU, EOMI and Conjunctiva clear ENT: Nose normal and Oropharynx normal Neck: Supple Respiratory: Airway patent, Breath sounds clear and Breath sounds equal Cardiovascular: RRR, No rub and No murmur GI/: Soft, Nontender, No masses and Bowel sounds normal Musculoskeletal: Normal strength, ROM intact and No edema Skin: Warm, Dry and Normal color Neurological: Sensation intact, Motor intact, Cranial nerves intact, Alert and Oriented Psychiatric: Affect appropriate and Mood appropriate (1) Alcohol intoxication: Status: Acute Code(s): F10.929 - Alcohol use, unspecified with intoxication, unspecified SNOMED Code(s): 64175221 (2) Hypertension, uncontrolled: Status: Acute Code(s): I10 - Essential (primary) hypertension SNOMED Code(s): 57283041 (3) Seizures: Status: Acute Code(s): R56.9 - Unspecified convulsions SNOMED Code(s): 84874860 (4) COVID-19: Status: Acute Code(s): U07.1 - COVID-19 SNOMED Code(s): 653270911 (5) Methamphetamine use: Status: Acute Code(s): F15.10 - Other stimulant abuse, uncomplicated SNOMED Code(s): 932774700 Reason for Hospitalization: Poorly controlled hypertension and seizure Prognosis/Condition at Discharge: Condition at discharge was good Medications at Discharge: Ambulatory Orders Medication Instructions Recorded albuterol sulfate 90 mcg/actuation 2 puff inhalation QID PRN Wheezing 10/20/15 aerosol inhaler (ProAir HFA) aspirin 81 mg tablet,delayed 81 mg PO DAILYWM 10/20/15 release enalapril maleate 10 mg tablet 5 - 10 mg PO BEDTIME 10/20/15 (Vasotec) fluticasone furoate 100 1 puff inhalation QAM 10/20/15 mcg-vilanterol 25 mcg/dose inhalation powder (Breo Ellipta) omeprazole 20 mg capsule,delayed 20 mg PO BIDAC 10/20/15 release oxycodone-acetaminophen 5 mg-325 1 tab PO TID PRN Severe Pain 06/27/16 mg tablet pravastatin 40 mg tablet 40 mg PO BEDTIME 10/20/15 zolpidem 10 mg tablet (Ambien) 10 mg PO BEDTIME 10/20/15 cariprazine 3 mg capsule (Vraylar) 3 mg PO BEDTIME 11/17/21 duloxetine 60 mg capsule,delayed 60 mg PO DAILY 11/17/21 release Education Provided to Patient and Family: Alcohol use, Methamphetamine use Follow-ups: Follow up with your primary care provider next week. Take and record your blood pressure twice daily. Discharge Disposition: Home Hospital Course: Patient admitted with a seizure and poorly controlled hypertension. He has a history of hypertension and seizure disorder. He was not currently on any antiseizure medication. Patient had both alcohol and methamphetamine on his drug screen. His BP was controlled prior to discharge. Patient exhibited no further seizure activity. He was placed on Keppra 500mg BID. Plan: Patient discharged on his prior medications and also Keppra. He was instructed to abstain from alcohol and methamphetamine use. He was instructed to continue his Keppra. Patient to take his BP twice daily and record it. Follow up with primary care provider in one week.
[2021-11-20 11:08] VITALS: BP 100/62
== END 2021-11-20 12:50 | disposition home or self-care (01) ==
LOC: ED 17:43 → INTOOBSV 22:40 → SCU 22:40
PROVIDERS: ADMIT Internal Medicine Geriatric Medicine; ATTEND Surgery
DX: R56.9 Unspecified convulsions; F10.929 Alcohol use, unspecified with intoxication, unspecified; U07.1 COVID-19; I10 Essential (primary) hypertension; R07.9 Chest pain, unspecified; F15.10 Other stimulant abuse, uncomplicated